=== PATIENT | female | born 1950 | race American Indian/Alaskan Native ===

== ENCOUNTER 2017-01-29 17:40 | Emergency (ER) | payer MEDICARE ==
[2017-01-29] MEDS ORDERED: PROVENTIL IH ONE ×2 (17:48→23:39)
[2017-01-29] MEDS ORDERED: DUONEB *Not for PRN Use IH ONE ×4 (17:48→23:35)
[2017-01-29 18:47] LABS: Basophils % (Auto) 0.8 % (0.0-1.8); Eosinophils % (Auto) 1.6 % (0.0-4.3); Hematocrit 46.2 % (30.3-42.9); Hemoglobin 14.9 gm/dl (10.1-14.3); Mean Corpuscular HGB Conc 32 % (30-34); Mean Corpuscular Hemoglobin 28 pg (28-32); Mean Corpuscular Volume 87 fl (79-97); Platelet Count 246 K/mm3 (140-440); Red Blood Count 5.33 M/mm3 (3.65-5.03); Red Cell Distribution Width 14.9 % (13.2-15.2); White Blood Count 10.4 K/mm3 (4.5-11.0)
[2017-01-29 19:05] LABS: Anion Gap 18 mmol/L; BUN/Creatinine Ratio 28; Blood Urea Nitrogen 17 mg/dL (7-17); Calcium 9.1 mg/dL (8.4-10.2); Carbon Dioxide 25 mmol/L (22-30); Chloride 100.6 mmol/L (98-107); Glucose 96 mg/dL (65-100); Potassium 3.8 mmol/L (3.6-5.0); Sodium 140 mmol/L (137-145)
--- NOTE | 2017-01-29 22:52 | XRay Report ---
FINAL REPORT PROCEDURE: XR CHEST ROUTINE 2V TECHNIQUE: PA and lateral chest radiographs were obtained. CPT 61514 HISTORY: Shortness of breath COMPARISON: No prior studies are available for comparison. FINDINGS: Heart: Normal. Mediastinum/Vessels: Mild pulmonary venous congestion is noted. Lungs/Pleural space: Bilateral lungs are hyperinflated. There are no confluent infiltrates. Right hilar structures are prominent. Pleural spaces are clear.. Bony thorax: No acute osseous abnormality. Other: IMPRESSION: Mild pulmonary venous congestion. Prominent right hilar structures are noted. Any underlying hilar abnormalities such as lymphadenopathy or mass lesion cannot be excluded. Comparison with any prior studies or a CT chest with contrast are recommended for further evaluation COPD. No acute pulmonary infiltrates.
[2017-01-29] MEDS ORDERED: ATROVENT IH ONE (23:39)
--- NOTE | 2017-01-29 23:47 | Emergency Department Report ---
ED Shortness of Breath HPI - General Chief Complaint: Dyspnea/Respdistress Stated Complaint: ANUJ Time Seen by Provider: 01/29/17 23:38 Source: patient Mode of arrival: Ambulatory Limitations: No Limitations - History of Present Illness Initial Comments: 66 YO FEMALE WITH H/O COPD C/O SHORTNESS OF BREATH FOR 4 DAYS. SHE HAS BEEN TAKING NEBULIZER TREATMENT IN THE EVENING FR FOUR DAYS. SHE HAS HAD NO CHEST PAIN BUT FEEL HER TREATMENTS DOES NOT WORK THUS SHE CAME IN TO THE ED TO BE TREATED. -: Gradual, days(s) (4) Severity: severe - Related Data Home Medications Medication Instructions Recorded Confirmed Last Taken ALBUTEROL Inhaler [ProAir HFA 09/18/14 09/18/14 09/17/14 Inhaler] Atorvastatin [Lipitor] 40 mg PO QHS 09/18/14 09/18/14 09/17/14 Lisinopril [Lisinopril] 09/18/14 09/18/14 09/17/14 Wellbutrin SR 150 mg PO DAILY 09/18/14 09/18/14 09/17/14 Previous Rx's Medication Instructions Recorded Last Taken Type Promethazine /Codeine 5 ml PO Q6H PRN #100 ml 01/02/14 Unknown Rx [Phenergan/Codeine 6.25-10 mg/5 ml] predniSONE [Deltasone] 50 mg PO ONCE #5 tablet 03/11/14 09/17/14 Rx Meclizine [Antivert] 25 mg PO TID PRN #10 tablet 04/23/14 Unknown Rx Ibuprofen [Motrin] 800 mg PO Q8H #20 tablet 09/18/14 Unknown Rx traMADol [Ultram 50 MG tab] 50 mg PO Q6HR PRN #20 tablet 09/18/14 Unknown Rx Ibuprofen [Motrin 600 MG tab] 600 mg PO Q8H PRN #30 tablet 03/12/16 Unknown Rx Zanamivir [Relenza] 5 mg IH BID #1 blst.w.dev 03/12/16 Unknown Rx Dexamethasone [Decadron] 20 mg PO ONCE #10 tablet 01/30/17 Unknown Rx Furosemide [Lasix] 20 mg PO QDAY #10 tablet 01/30/17 Unknown Rx Allergies Allergy/AdvReac Type Severity Reaction Status Date / Time Penicillins Allergy Swelling Verified 12/22/16 09:44 ED Review of Systems ROS: Stated complaint: ANUJ Other details as noted in HPI Constitutional: denies: chills, fever Eyes: denies: eye pain, eye discharge, vision change ENT: denies: ear pain, throat pain Respiratory: cough, shortness of breath. denies: wheezing Cardiovascular: denies: chest pain, palpitations Endocrine: no symptoms reported Gastrointestinal: denies: abdominal pain, nausea, diarrhea Genitourinary: denies: urgency, dysuria, discharge Musculoskeletal: denies: back pain, joint swelling, arthralgia Skin: denies: rash, lesions Neurological: denies: headache, weakness, paresthesias Psychiatric: denies: anxiety, depression Hematological/Lymphatic: denies: easy bleeding, easy bruising ED Past Medical Hx - Past Medical History Hx Hypertension: Yes Hx Asthma: Yes Hx COPD: Yes Additional medical history: bronchitis, diverticulitis - Surgical History Additional Surgical History: partial hysterectomy, hemorrhoid - Social History Smoking Status: Current Every Day Smoker Substance Use Type: None - Medications Home Medications: Home Medications Medication Instructions Recorded Confirmed Last Taken Type Promethazine /Codeine 5 ml PO Q6H PRN #100 ml 01/02/14 09/18/14 Unknown Rx [Phenergan/Codeine 6.25-10 mg/5 ml] predniSONE [Deltasone] 50 mg PO ONCE #5 tablet 03/11/14 09/18/14 09/17/14 Rx Meclizine [Antivert] 25 mg PO TID PRN #10 tablet 04/23/14 09/18/14 Unknown Rx ALBUTEROL Inhaler [ProAir HFA 09/18/14 09/18/14 09/17/14 History Inhaler] Atorvastatin [Lipitor] 40 mg PO QHS 09/18/14 09/18/14 09/17/14 History Ibuprofen [Motrin] 800 mg PO Q8H #20 tablet 09/18/14 Unknown Rx Lisinopril [Lisinopril] 09/18/14 09/18/14 09/17/14 History Wellbutrin SR 150 mg PO DAILY 09/18/14 09/18/14 09/17/14 History traMADol [Ultram 50 MG tab] 50 mg PO Q6HR PRN #20 tablet 09/18/14 Unknown Rx Ibuprofen [Motrin 600 MG tab] 600 mg PO Q8H PRN #30 tablet 03/12/16 Unknown Rx Zanamivir [Relenza] 5 mg IH BID #1 blst.w.dev 03/12/16 Unknown Rx Dexamethasone [Decadron] 20 mg PO ONCE #10 tablet 01/30/17 Unknown Rx Furosemide [Lasix] 20 mg PO QDAY #10 tablet 01/30/17 Unknown Rx ED Physical Exam - General Limitations: No Limitations General appearance: alert, in no apparent distress - Head Head exam: Present: atraumatic, normocephalic - Eye Eye exam: Present: normal appearance - ENT ENT exam: Present: mucous membranes moist - Neck Neck exam: Present: normal inspection - Respiratory Respiratory exam: Present: normal lung sounds bilaterally, respiratory distress , decreased breath sounds, prolonged expiratory - Cardiovascular Cardiovascular Exam: Present: regular rate, normal rhythm. Absent: systolic murmur, diastolic murmur, rubs, gallop - GI/Abdominal GI/Abdominal exam: Present: soft, normal bowel sounds - Extremities Exam Extremities exam: Present: normal inspection - Back Exam Back exam: Present: normal inspection - Neurological Exam Neurological exam: Present: alert, oriented X3 - Psychiatric Psychiatric exam: Present: normal affect, normal mood - Skin Skin exam: Present: warm, dry, intact, normal color. Absent: rash ED Course Vital Signs 01/29/17 01/29/17 01/29/17 17:42 17:52 18:02 Temperature 99.1 F Pulse Rate 91 H Pulse Rate [ 87 85 Anterior Bilateral Throughout] Respiratory 22 Rate Respiratory 30 H 22 Rate [Anterior Bilateral Throughout] Blood Pressure 156/94 O2 Sat by Pulse 97 Oximetry 01/29/17 01/29/17 01/29/17 22:46 23:00 23:15 Temperature Pulse Rate 89 82 84 Pulse Rate [ Anterior Bilateral Throughout] Respiratory 22 18 20 Rate Respiratory Rate [Anterior Bilateral Throughout] Blood Pressure 186/100 166/100 O2 Sat by Pulse 99 98 Oximetry 01/29/17 01/29/17 01/29/17 23:28 23:30 23:42 Temperature Pulse Rate 81 84 Pulse Rate [ 91 H Anterior Bilateral Throughout] Respiratory 20 24 Rate Respiratory 18 Rate [Anterior Bilateral Throughout] Blood Pressure 166/100 165/90 O2 Sat by Pulse 99 95 Oximetry 01/29/17 01/29/17 01/30/17 23:46 23:55 00:00 Temperature Pulse Rate 85 88 Pulse Rate [ 93 H Anterior Bilateral Throughout] Respiratory 13 22 Rate Respiratory 18 Rate [Anterior Bilateral Throughout] Blood Pressure 157/100 157/100 O2 Sat by Pulse 99 98 Oximetry 01/30/17 01/30/17 01/30/17 00:15 00:46 01:00 Temperature Pulse Rate 88 Pulse Rate [ Anterior Bilateral Throughout] Respiratory 27 H Rate Respiratory Rate [Anterior Bilateral Throughout] Blood Pressure 157/83 151/73 155/84 O2 Sat by Pulse 95 97 97 Oximetry 01/30/17 01/30/17 01/30/17 01:08 01:51 02:06 Temperature Pulse Rate 92 H Pulse Rate [ 88 75 Anterior Bilateral Throughout] Respiratory 18 Rate Respiratory 20 18 Rate [Anterior Bilateral Throughout] Blood Pressure 155/84 O2 Sat by Pulse 96 Oximetry 01/30/17 01/30/17 01/30/17 02:08 02:09 02:11 Temperature Pulse Rate 92 H 91 H 91 H Pulse Rate [ Anterior Bilateral Throughout] Respiratory 24 20 22 Rate Respiratory Rate [Anterior Bilateral Throughout] Blood Pressure 155/84 155/84 155/84 O2 Sat by Pulse 96 97 97 Oximetry 01/30/17 01/30/17 01/30/17 02:13 02:15 02:17 Temperature Pulse Rate 90 90 90 Pulse Rate [ Anterior Bilateral Throughout] Respiratory 21 13 22 Rate Respiratory Rate [Anterior Bilateral Throughout] Blood Pressure 155/84 155/84 155/84 O2 Sat by Pulse 98 98 97 Oximetry 01/30/17 01/30/17 01/30/17 02:19 02:20 02:21 Temperature Pulse Rate 89 90 98 H Pulse Rate [ Anterior Bilateral Throughout] Respiratory 23 25 H 24 Rate Respiratory Rate [Anterior Bilateral Throughout] Blood Pressure 155/75 130/67 130/67 O2 Sat by Pulse 97 93 97 Oximetry 01/30/17 01/30/17 01/30/17 02:23 02:25 02:27 Temperature Pulse Rate 90 90 91 H Pulse Rate [ Anterior Bilateral Throughout] Respiratory 24 21 18 Rate Respiratory Rate [Anterior Bilateral Throughout] Blood Pressure 130/67 130/67 130/67 O2 Sat by Pulse 95 97 98 Oximetry 01/30/17 01/30/17 01/30/17 02:29 02:31 02:33 Temperature Pulse Rate 91 H 93 H 93 H Pulse Rate [ Anterior Bilateral Throughout] Respiratory 19 19 24 Rate Respiratory Rate [Anterior Bilateral Throughout] Blood Pressure 130/67 130/67 130/67 O2 Sat by Pulse 96 97 97 Oximetry 01/30/17 01/30/17 01/30/17 02:35 02:37 02:39 Temperature Pulse Rate 93 H 91 H 92 H Pulse Rate [ Anterior Bilateral Throughout] Respiratory 13 22 21 Rate Respiratory Rate [Anterior Bilateral Throughout] Blood Pressure 130/67 130/67 130/67 O2 Sat by Pulse 98 96 97 Oximetry 01/30/17 01/30/17 01/30/17 02:40 02:41 02:43 Temperature Pulse Rate 93 H 93 H 92 H Pulse Rate [ Anterior Bilateral Throughout] Respiratory 23 24 16 Rate Respiratory Rate [Anterior Bilateral Throughout] Blood Pressure 139/61 139/61 139/61 O2 Sat by Pulse 95 97 96 Oximetry 01/30/17 02:44 Temperature Pulse Rate 92 H Pulse Rate [ Anterior Bilateral Throughout] Respiratory 14 Rate Respiratory Rate [Anterior Bilateral Throughout] Blood Pressure 139/61 O2 Sat by Pulse 98 Oximetry - Reevaluation(s) Reevaluation #1: 01/30/17 04:09 NO SOB, NO WHEEZING , NL ABD ,WILLD/C HOME ED Medical Decision Making - Lab Data Result diagrams: 01/29/17 18:29 01/29/17 18:29 - EKG Data EKG shows normal: sinus rhythm, axis - EKG Data Interpretation: LVH, other (Q IN V1-V3) - Radiology Data Radiology results: report reviewed (CXR: ?MASS IN CHEST, RECOMMENT CT OF CHEST CT SHEST: COPD,EMPHYSEMA) Critical care attestation.: If time is entered above; I have spent that time in minutes in the direct care of this critically ill patient, excluding procedure time. ED Disposition Clinical Impression: COPD exacerbation CHF (congestive heart failure) Qualifiers: Congestive heart failure type: unspecified congestive heart failure type Congestive heart failure chronicity: acute Qualified Code(s): I50.9 - Heart failure, unspecified Disposition: DC-01 TO HOME OR SELFCARE Is pt being admited?: No Does the pt Need Aspirin: No Condition: Stable Instructions: Heart Failure (ED), Chronic Obstructive Pulmonary Disease (ED) Additional Instructions: RETURN TO THE ED FOR ANY REASON,ESPECIALLY SHORTNESS OF BREATH Prescriptions: Dexamethasone [Decadron] 20 mg PO ONCE #10 tablet Furosemide [Lasix] 20 mg PO QDAY #10 tablet Referrals: PRIMARY CARE, [Primary Care Provider] - 3-5 Days
[2017-01-30 00:55] LABS: ISTAT Base Excess 1; ISTAT DEVICE 0; ISTAT HCO3 24.7; ISTAT PCO2 35.9 (35-45); ISTAT PH 7.445 (7.35-7.45); ISTAT PO2 89 (80-105); ISTAT SO2 97; ISTAT TCO2 26
[2017-01-30] MEDS ORDERED: XOPENEX IH ONE ×2 (01:03→01:05)
[2017-01-30] MEDS ORDERED: ATROVENT IH ONE (01:05)
--- NOTE | 2017-01-30 01:36 | Cat Scan Report ---
FINAL REPORT EXAM: CT CHEST W CON HISTORY: MASS IN CHEST TECHNIQUE: Routine axial images were obtained of the thorax following the intravenous injection of iodinated contrast. Sagittal and coronal reconstructions were reviewed. The chest radiograph of 01/29/2017 was reviewed for correlation. FINDINGS: The lungs reveal emphysematous changes, particularly in the lingula. There scarring in the right lung base. There is no evidence of hilar mass or adenopathy bilaterally. The heart size is normal. The vascular structures enhance normally. There is no evidence of pericardial or pleural effusion. There is no evidence of pulmonary embolus. At the thoracic inlet the thyroid gland appears normal. In the upper abdomen the adrenal glands appear normal. The skeletal structures reveal disc degeneration in the thoracic spine. IMPRESSION: Emphysematous changes. No evidence of right hilar mass or adenopathy. Mild scarring in the right lung base. No acute process in the chest.
[2017-01-30] MEDS ORDERED: DECADRON PO ONE (04:06)
[2017-01-30] MEDS ORDERED: DECADRON ONE (04:10)
[2017-01-30] MEDS ORDERED: LASIX PO ONE (04:11)
[2017-01-30 04:23] VITALS: BP 135/79
== END 2017-01-30 04:23 | disposition home or self-care (01) ==
LOC: ED 17:40
DX: I50.9 Heart failure, unspecified (principal); J44.1 Chronic obstructive pulmonary disease with (acute) exacerbation; I10 Essential (primary) hypertension; F17.200 Nicotine dependence, unspecified, uncomplicated; Z90.711 Acquired absence of uterus with remaining cervical stump; Z88.0 Allergy status to penicillin
CPT/HCPCS: 36415; 71020; 71260; 80048; 82803; 83880; 84484; 85025; 93005; 93010; 94640; 94644; 99284; J1100; Q9967

== ENCOUNTER 2017-02-11 05:46 | Emergency (ER) | payer MEDICARE ==
[2017-02-11 07:16] LABS: Basophils % (Auto) 0.6 % (0.0-1.8); Eosinophils % (Auto) 1.1 % (0.0-4.3); Hematocrit 45.2 % (30.3-42.9); Hemoglobin 14.4 gm/dl (10.1-14.3); Mean Corpuscular HGB Conc 32 % (30-34); Mean Corpuscular Hemoglobin 28 pg (28-32); Mean Corpuscular Volume 88 fl (79-97); Platelet Count 199 K/mm3 (140-440); Red Blood Count 5.16 M/mm3 (3.65-5.03); Red Cell Distribution Width 15.1 % (13.2-15.2); White Blood Count 12.7 K/mm3 (4.5-11.0)
[2017-02-11 07:32] LABS: Anion Gap 18 mmol/L; BUN/Creatinine Ratio 28; Blood Urea Nitrogen 14 mg/dL (7-17); Calcium 8.9 mg/dL (8.4-10.2); Carbon Dioxide 25 mmol/L (22-30); Chloride 102.4 mmol/L (98-107); Glucose 168 mg/dL (65-100); Potassium 3.5 mmol/L (3.6-5.0); Sodium 142 mmol/L (137-145)
--- NOTE | 2017-02-11 08:14 | XRay Report ---
CHEST TWO VIEWS: 02/11/17 05:46:00 CLINICAL: Shortness of breath. COMPARISON: 01/29/17 FINDINGS: Normal heart and pulmonary vasculature. The lungs are normally expanded and clear except for a band of subsegmental atelectasis or scar in the left lower lobe. No airspace disease or pleural effusion. The bones and soft tissues are normal. IMPRESSION: Left lower lobe subsegmental atelectasis versus scar. No change.
[2017-02-11] MEDS ORDERED: SUBLIMAZE IV ONE (08:50)
[2017-02-11] MEDS ORDERED: TORADOL IV ONE (08:50)
--- NOTE | 2017-02-11 08:50 | Emergency Department Report ---
ED General Adult HPI - General Chief complaint: Dyspnea/Respdistress Stated complaint: COUGH/ANUJ Time Seen by Provider: 02/11/17 08:38 Source: patient, EMS, RN notes reviewed, old records reviewed Mode of arrival: Ambulatory Limitations: No Limitations - History of Present Illness Initial comments: This is a 66-year-old female. The patient is previously known to this provider. Patient reports a history of possible COPD, congestive heart failure, hypertension. Patient presents to the ER with cough, he gets production, chest wall spasms. The spasms have been present for 2 weeks. She does not have chest pain. Patient also complains of cough and mucus production. She is coughing more than she typically coughs. She is bringing up more mucus than she typically brings up. Patient reports that she recently quit smoking. There are no pulmonary edema most or DVT risk factors. She reports numerous sick contacts at home and her grandchildren, all of whom have similar symptoms, and who she thinks got her "sick." She reports having a positive pressure machine at home to help with sleep, but reports poor compliance of this. She reports chronic multiple pillow orthopnea for months and years. Her symptoms have been going on for the past 2 or 3 days. They worse with physical exertion. They decreased with rest. They do not radiate anywhere. -: Gradual, days(s), week(s) Location: chest (b/l ribs) Radiation: non-radiation Severity scale (0 -10): 4 Quality: other (spasms) Improves with: rest Worsens with: movement Associated Symptoms: cough, shortness of breath (chronic) - Related Data Home Medications Medication Instructions Recorded Confirmed Last Taken ALBUTEROL Inhaler [ProAir HFA 09/18/14 09/18/14 09/17/14 Inhaler] Atorvastatin [Lipitor] 40 mg PO QHS 09/18/14 09/18/14 09/17/14 Lisinopril [Lisinopril] 09/18/14 09/18/14 09/17/14 Wellbutrin SR 150 mg PO DAILY 09/18/14 09/18/14 09/17/14 Previous Rx's Medication Instructions Recorded Last Taken Type Promethazine /Codeine 5 ml PO Q6H PRN #100 ml 01/02/14 Unknown Rx [Phenergan/Codeine 6.25-10 mg/5 ml] predniSONE [Deltasone] 50 mg PO ONCE #5 tablet 03/11/14 09/17/14 Rx Meclizine [Antivert] 25 mg PO TID PRN #10 tablet 04/23/14 Unknown Rx Ibuprofen [Motrin] 800 mg PO Q8H #20 tablet 09/18/14 Unknown Rx traMADol [Ultram 50 MG tab] 50 mg PO Q6HR PRN #20 tablet 09/18/14 Unknown Rx Ibuprofen [Motrin 600 MG tab] 600 mg PO Q8H PRN #30 tablet 03/12/16 Unknown Rx Zanamivir [Relenza] 5 mg IH BID #1 blst.w.dev 03/12/16 Unknown Rx Dexamethasone [Decadron] 20 mg PO ONCE #10 tablet 01/30/17 Unknown Rx Furosemide [Lasix] 20 mg PO QDAY #10 tablet 01/30/17 Unknown Rx Acetaminophen [Tylenol Arthritis] 650 mg PO Q6HR PRN #30 tablet.er 02/11/17 Unknown Rx Albuterol Sulfate [Proair 90 mcg IH Q4HR PRN #2 aer.pow.ba 02/11/17 Unknown Rx Respiclick] Benzonatate [Tessalon Perles] 100 mg PO Q8HR PRN #30 capsule 02/11/17 Unknown Rx Fluticasone [Flonase] 1 spray NS QDAY #1 bottle 02/11/17 Unknown Rx Ipratropium [place] [Atrovent Hfa] 12.9 gm IH Q4HR #2 hfa.aer.ad 02/11/17 Unknown Rx Allergies Allergy/AdvReac Type Severity Reaction Status Date / Time Penicillins Allergy Swelling Verified 03/12/16 09:44 ED Review of Systems ROS: Stated complaint: COUGH/ANUJ Other details as noted in HPI Constitutional: denies: fever Eyes: denies: eye discharge ENT: throat pain, congestion Respiratory: cough Cardiovascular: denies: chest pain Gastrointestinal: denies: abdominal pain, vomiting Musculoskeletal: arthralgia Skin: denies: lesions Neurological: weakness Psychiatric: anxiety ED Past Medical Hx - Past Medical History Previous Medical History?: Yes Hx Hypertension: Yes Hx Asthma: Yes Hx COPD: Yes Additional medical history: bronchitis, diverticulitis - Surgical History Past Surgical History?: Yes Additional Surgical History: partial hysterectomy, hemorrhoid - Social History Smoking Status: Former Smoker Substance Use Type: None - Medications Home Medications: Home Medications Medication Instructions Recorded Confirmed Last Taken Type Promethazine /Codeine 5 ml PO Q6H PRN #100 ml 01/02/14 09/18/14 Unknown Rx [Phenergan/Codeine 6.25-10 mg/5 ml] predniSONE [Deltasone] 50 mg PO ONCE #5 tablet 03/11/14 09/18/14 09/17/14 Rx Meclizine [Antivert] 25 mg PO TID PRN #10 tablet 04/23/14 09/18/14 Unknown Rx ALBUTEROL Inhaler [ProAir HFA 09/18/14 09/18/14 09/17/14 History Inhaler] Atorvastatin [Lipitor] 40 mg PO QHS 09/18/14 09/18/14 09/17/14 History Ibuprofen [Motrin] 800 mg PO Q8H #20 tablet 09/18/14 Unknown Rx Lisinopril [Lisinopril] 09/18/14 09/18/14 09/17/14 History Wellbutrin SR 150 mg PO DAILY 09/18/14 09/18/14 09/17/14 History traMADol [Ultram 50 MG tab] 50 mg PO Q6HR PRN #20 tablet 09/18/14 Unknown Rx Ibuprofen [Motrin 600 MG tab] 600 mg PO Q8H PRN #30 tablet 03/12/16 Unknown Rx Zanamivir [Relenza] 5 mg IH BID #1 blst.w.dev 03/12/16 Unknown Rx Dexamethasone [Decadron] 20 mg PO ONCE #10 tablet 01/30/17 Unknown Rx Furosemide [Lasix] 20 mg PO QDAY #10 tablet 01/30/17 Unknown Rx Acetaminophen [Tylenol Arthritis] 650 mg PO Q6HR PRN #30 tablet.er 02/11/17 Unknown Rx Albuterol Sulfate [Proair 90 mcg IH Q4HR PRN #2 aer.pow.ba 02/11/17 Unknown Rx Respiclick] Benzonatate [Tessalon Perles] 100 mg PO Q8HR PRN #30 capsule 02/11/17 Unknown Rx Fluticasone [Flonase] 1 spray NS QDAY #1 bottle 02/11/17 Unknown Rx Ipratropium [place] [Atrovent Hfa] 12.9 gm IH Q4HR #2 hfa.aer.ad 02/11/17 Unknown Rx ED Physical Exam - General Limitations: No Limitations General appearance: alert, in distress, obese - Head Head exam: Present: atraumatic, normocephalic - Eye Eye exam: Present: normal appearance, EOMI. Absent: nystagmus - ENT ENT exam: Present: normal exam, normal orophraynx, mucous membranes moist, normal external ear exam - Neck Neck exam: Present: normal inspection, full ROM - Respiratory Respiratory exam: Present: normal lung sounds bilaterally, chest wall tenderness. Absent: respiratory distress, wheezes, rales, rhonchi, stridor - Cardiovascular Cardiovascular Exam: Present: regular rate, normal rhythm, normal heart sounds. Absent: systolic murmur, diastolic murmur, rubs, gallop - GI/Abdominal GI/Abdominal exam: Present: soft, normal bowel sounds. Absent: distended, tenderness, guarding, rebound, rigid, pulsatile mass - Extremities Exam Extremities exam: Present: normal inspection, full ROM, normal capillary refill. Absent: pedal edema, joint swelling, calf tenderness - Back Exam Back exam: Present: normal inspection, full ROM. Absent: tenderness, CVA tenderness (R), paraspinal tenderness, vertebral tenderness - Neurological Exam Neurological exam: Present: alert, oriented X3, normal gait, other (Extraocular movements intact. Tongue midline. No facial droop. Facial sensation intact to light touch in the V1, V2, V3 distribution bilaterally. 5 and 5 strength in 4 extremities.. Sensation is intact to light touch in 4 extremities.). Absent : motor sensory deficit - Psychiatric Psychiatric exam: Present: normal affect, normal mood - Skin Skin exam: Present: warm, dry, intact, normal color. Absent: rash ED Course Vital Signs 02/11/17 02/11/17 02/11/17 06:00 09:20 09:35 Temperature 98.6 F 98.3 F Pulse Rate 84 75 Respiratory 20 20 20 Rate Blood Pressure 127/80 136/78 [Right] O2 Sat by Pulse 96 98 Oximetry 02/11/17 02/11/17 10:17 10:54 Temperature 98.3 F Pulse Rate 90 68 Respiratory 22 20 Rate Blood Pressure 132/71 [Right] O2 Sat by Pulse 100 Oximetry - Reevaluation(s) Reevaluation #1: 02/11/17 10:41 Troponin is sent prior to my evaluation. Based on the history and physical, I think acute coronary syndrome is very unlikely. Patient by history low risk by JAMEEL score, and low risk by heart score. Symptoms have been present for 2-3 days. As per the [employer] clinical policy, myocardial infarction may be excluded with 1 set of cardiac enzymes if symptoms have been present for greater than 8 hours. ED Medical Decision Making - Lab Data Result diagrams: 02/11/17 06:56 02/11/17 06:56 Vital Signs 02/11/17 02/11/17 02/11/17 06:00 09:35 10:17 Temperature 98.6 F Pulse Rate 84 90 Respiratory 20 20 22 Rate Blood Pressure 127/80 [Right] O2 Sat by Pulse 96 Oximetry Lab Results 02/11/17 02/11/17 02/11/17 Range/Units 06:56 06:56 06:56 WBC (4.5-11.0) K/mm3 RBC (3.65-5.03) M/mm3 Hgb (10.1-14.3) gm/dl Hct (30.3-42.9) % MCV (79-97) fl MCH (28-32) pg MCHC (30-34) % RDW (13.2-15.2) % Plt Count (140-440) K/mm3 Lymph % (Auto) (13.4-35.0) % [place]ayson % (Auto) (0.0-7.3) % Eos % (Auto) (0.0-4.3) % Baso % (Auto) (0.0-1.8) % Lymph # (1.2-5.4) K/mm3 [place]ayson # (0.0-0.8) K/mm3 Eos # (0.0-0.4) K/mm3 Baso # (0.0-0.1) K/mm3 Seg Neutrophils % (40.0-70.0) % Seg Neutrophils # (1.8-7.7) K/mm3 POC ABG pH (7.35-7.45) POC ABG pCO2 (35-45) POC ABG pO2 (80-105) POC ABG HCO3 POC ABG Total CO2 POC ABG O2 Sat POC ABG Base Excess VBG pH 7.383 (7.320-7.420) FiO2 % Sodium 142 (137-145) mmol/L Potassium 3.5 L (3.6-5.0) mmol/L Chloride 102.4 (98-107) mmol/L Carbon Dioxide 25 (22-30) mmol/L Anion Gap 18 mmol/L BUN 14 (7-17) mg/dL Creatinine 0.5 L (0.7-1.2) mg/dL Estimated GFR > 60 ml/min BUN/Creatinine Ratio 28 % Glucose 168 H (65-100) mg/dL Lactic Acid 1.50 (0.7-2.0) mmol/L Calcium 8.9 (8.4-10.2) mg/dL Troponin T < 0.010 (0.00-0.029) ng/mL 02/11/17 02/11/17 Range/Units 06:56 10:02 WBC 12.7 H (4.5-11.0) K/mm3 RBC 5.16 H (3.65-5.03) M/mm3 Hgb 14.4 H (10.1-14.3) gm/dl Hct 45.2 H (30.3-42.9) % MCV 88 (79-97) fl MCH 28 (28-32) pg MCHC 32 (30-34) % RDW 15.1 (13.2-15.2) % Plt Count 199 (140-440) K/mm3 Lymph % (Auto) 19.0 (13.4-35.0) % [place] % (Auto) 6.5 (0.0-7.3) % Eos % (Auto) 1.1 (0.0-4.3) % Baso % (Auto) 0.6 (0.0-1.8) % Lymph # 2.4 (1.2-5.4) K/mm3 Grayson # 0.8 (0.0-0.8) K/mm3 Eos # 0.1 (0.0-0.4) K/mm3 Baso # 0.1 (0.0-0.1) K/mm3 Seg Neutrophils % 72.8 H (40.0-70.0) % Seg Neutrophils # 9.3 H (1.8-7.7) K/mm3 POC ABG pH 7.412 (7.35-7.45) POC ABG pCO2 44.2 (35-45) POC ABG pO2 70 L (80-105) POC ABG HCO3 28.1 POC ABG Total CO2 29 POC ABG O2 Sat 94 POC ABG Base Excess 4 VBG pH (7.320-7.420) FiO2 21 % Sodium (137-145) mmol/L Potassium (3.6-5.0) mmol/L Chloride (98-107) mmol/L Carbon Dioxide (22-30) mmol/L Anion Gap mmol/L BUN (7-17) mg/dL Creatinine (0.7-1.2) mg/dL Estimated GFR ml/min BUN/Creatinine Ratio % Glucose (65-100) mg/dL Lactic Acid (0.7-2.0) mmol/L Calcium (8.4-10.2) mg/dL Troponin T (0.00-0.029) ng/mL - EKG Data -: EKG Interpreted by Pa - EKG Data 02/11/17 10:37 Normal sinus, 85 bpm, left axis deviation, left anterior fascicular block, left ventricular hypertrophy, poor R-wave progression, abnormal EKG, not morphologically consistent with ST elevation myocardial infarction, appears unchanged compared to prior. - Radiology Data Radiology results: report reviewed, image reviewed X-ray of the chest demonstrates chronic findings. No new findings are noted. Of note, patient had CT scan of the chest on January 29, demonstrated chronic emphysematous changes and mild scarring in the right lung base. - Medical Decision Making Differential diagnosis, including but not limited to: Costochondritis, anxiety, bronchitis, pneumonia, congestive heart failure Assessment and plan 66-year-old female who reports bilateral chest wall spasms for 2 weeks, of note , this was not noted on her prior visit, cough, mucus production and chronic shortness of breath. Objectively speaking, the patient does not have crackles, rales or rhonchi. She is saturating at 97% on room air. Her arterial blood gas demonstrates mild hypoxemia with a PaO2 of 70. However, the patient is able to ambulate without desaturation. She does have some shortness of breath with ambulation. There are no pulmonary blister DVT risk factors and she is low risk by well's criteria. A CT scan of the chest performed at this hospital a week and a half ago demonstrated chronic emphysematous changes and the patient was presumptively diagnosed with congestive heart failure. The patient has no crackles or rales, she is not hypoxic, therefore think congestive heart failure is unlikely. She does not have any wheezes, therefore I think COPD exacerbation and/or asthma exacerbation also unlikely. She endorses multiple child sick contacts at home with similar symptoms, most likely the patient has bronchitis which is exacerbating her underlying poorly managed COPD. The patient's history, physical, laboratory studies were discussed with the presser and blocker knitted goods on-call, Dr. Olmstead, and we both agree that based on the patient's current clinical presentation, she does not objectively require hospitalization. The patient was medicated with fentanyl and Toradol, and felt much improved, and reported her spasms improved. Dr. Olmstead indicates the patient should follow-up with him within a week. The patient will be therefore discharged with as needed pain medication, cough medication, she was instructed to discontinue tobacco consumption, and she is counseled to follow up as an outpatient. Critical care attestation.: If time is entered above; I have spent that time in minutes in the direct care of this critically ill patient, excluding procedure time. ED Disposition Clinical Impression: Bronchitis Disposition: [id number] TO HOME OR SELFCARE Is pt being admited?: No Does the pt Need Aspirin: No Condition: Good Instructions: Chronic Bronchitis (ED) Additional Instructions: Symptoms most likely coming from bronchitis. Bronchitis symptoms typically take 4-6 weeks to resolve. Discontinued tobacco consumption. Tobacco is bad for the patient's health, and will likely continue to exacerbate and worsen patient's symptoms. Follow up with the primary care doctor or a lung doctor within the next [address] Olmstead is a local lung doctor. Take the cough medication, and pain medication as directed. Return to the ER right away with new pain, worsening pain, migration of pain, fevers, chills, lethargy, irritability, projectile vomiting, change in mental status, confusion, inability to tolerate liquid feeds. Prescriptions: Acetaminophen [Tylenol Arthritis] 650 mg PO Q6HR PRN #30 tablet.er PRN Reason: Pain Albuterol Sulfate [Proair Respiclick] 90 mcg IH Q4HR PRN #2 aer.pow.ba PRN Reason: Wheezing Benzonatate [Tessalon Perles] 100 mg PO Q8HR PRN #30 capsule PRN Reason: Cough Fluticasone [Flonase] 1 spray NS QDAY #1 bottle Ipratropium [place] [Atrovent Hfa] 12.9 gm IH Q4HR #2 hfa.aer.ad Referrals: DONTA ALFARO,DERIC TALAVERA MD [Primary Care Provider] - 3-5 Days JAMES OLMSTEAD MD [Staff Physician] - 3-5 Days
[2017-02-11 10:09] LABS: ISTAT Base Excess 4; ISTAT DEVICE 0; ISTAT HCO3 28.1; ISTAT PCO2 44.2 (35-45); ISTAT PH 7.412 (7.35-7.45); ISTAT PO2 70 (80-105); ISTAT SO2 94; ISTAT TCO2 29
[2017-02-11 10:55] VITALS: BP 132/71
== END 2017-02-11 11:10 | disposition home or self-care (01) ==
LOC: ED 05:46
DX: J40 Bronchitis, not specified as acute or chronic (principal); I10 Essential (primary) hypertension; J44.9 Chronic obstructive pulmonary disease, unspecified
CPT/HCPCS: 36415; 71020; 80048; 82140; 82803; 82805; 84484; 85025; 93005; 93010; 96374; 96375; 99284; J1885; J3010

== ENCOUNTER 2017-09-18 12:04 | Emergency (ER) | payer MEDICARE ==
[2017-09-18] MEDS ORDERED: ASPIRIN PO ONE (12:18)
[2017-09-18 13:22] LABS: Basophils # (Auto) 0.1 K/mm3 (0.0-0.1); Basophils % (Auto) 0.8 % (0.0-1.8); Eosinophils # (Auto) 0.1 K/mm3 (0.0-0.4); Eosinophils % (Auto) 1.2 % (0.0-4.3); Hematocrit 42.6 % (30.3-42.9); Hemoglobin 13.6 gm/dl (10.1-14.3); Lymphocytes # (Auto) 2.9 K/mm3 (1.2-5.4); Lymphocytes % (Auto) 27.8 % (13.4-35.0); Mean Corpuscular HGB Conc 32 % (30-34); Mean Corpuscular Hemoglobin 28 pg (28-32); Mean Corpuscular Volume 88 fl (79-97); Monocytes # (Auto) 0.7 K/mm3 (0.0-0.8); Monocytes % (Auto) 6.3 % (0.0-7.3); Red Blood Count 4.84 M/mm3 (3.65-5.03)
[2017-09-18 13:26] LABS: Platelet Count 185 K/mm3 (140-440)
[2017-09-18 13:43] LABS: BUN/Creatinine Ratio 19; Blood Urea Nitrogen 13 mg/dL (7-17); Calcium 9.4 mg/dL (8.4-10.2); Hemolysis Index 52
--- NOTE | 2017-09-18 18:05 | Emergency Department Report ---
ED Shortness of Breath HPI - General Chief Complaint: Dyspnea/Respdistress Stated Complaint: SOB HX COPD Time Seen by Provider: 09/18/17 17:58 Source: patient Mode of arrival: Ambulatory Limitations: No Limitations - History of Present Illness Initial Comments: 67-year-old woman with past history of COPD and tobacco abuse, presents with 2 week history of shortness of breath. Symptoms have been intermittent, but fairly persistent, not associated with exertion, but present at rest most of the time, with some report of slight increase in sputum production with cough. She has been using her pump inhalers, has been reluctant to use nebulizer, primarily because she says it makes her feel too jittery, and at best has only been using it once per day. She does not take any steroids on a regular basis. She is a previous smoker, but quit a year ago, has not started back recently. On question by nurse at intake, patient also reports that she has been having chest pain, central, sharp, increased with deep inspiration, lasting only seconds, and return in when she has deep inspiration or movement. She had no pressure-like sensation, no diaphoresis, no fever or chills, no abdominal pain and no nausea or vomiting. Onset/Timin -: Gradual, week(s) Consistency: constant Improves With: medication (pump inhaler) - Related Data Home Medications Medication Instructions Recorded Confirmed Last Taken ALBUTEROL Inhaler [ProAir HFA 09/18/14 09/18/14 09/17/14 Inhaler] Atorvastatin [Lipitor] 40 mg PO QHS 09/18/14 09/18/14 09/17/14 Lisinopril 09/18/14 09/18/14 09/17/14 Wellbutrin SR 150 mg PO DAILY 09/18/14 09/18/14 09/17/14 Previous Rx's Medication Instructions Recorded Last Taken Type Promethazine /Codeine 5 ml PO Q6H PRN #100 ml 01/02/14 Unknown Rx [Phenergan/Codeine 6.25-10 mg/5 ml] predniSONE [Deltasone] 50 mg PO ONCE #5 tablet 03/11/14 09/17/14 Rx Meclizine [Antivert] 25 mg PO TID PRN #10 tablet 04/23/14 Unknown Rx Ibuprofen [Motrin] 800 mg PO Q8H #20 tablet 09/18/14 Unknown Rx traMADol [Ultram 50 MG tab] 50 mg PO Q6HR PRN #20 tablet 09/18/14 Unknown Rx Ibuprofen [Motrin 600 MG tab] 600 mg PO Q8H PRN #30 tablet 03/12/16 Unknown Rx Zanamivir [Relenza] 5 mg IH BID #1 blst.w.dev 03/12/16 Unknown Rx Dexamethasone [Decadron] 20 mg PO ONCE #10 tablet 01/30/17 Unknown Rx Furosemide [Lasix] 20 mg PO QDAY #10 tablet 01/30/17 Unknown Rx Acetaminophen [Tylenol Arthritis] 650 mg PO Q6HR PRN #30 tablet.er 02/11/17 Unknown Rx Albuterol Sulfate [Proair 90 mcg IH Q4HR PRN #2 aer.pow.ba 02/11/17 Unknown Rx Respiclick] Benzonatate [Tessalon Perles] 100 mg PO Q8HR PRN #30 capsule 02/11/17 Unknown Rx Fluticasone [Flonase] 1 spray NS QDAY #1 bottle 02/11/17 Unknown Rx Ipratropium Atkinson [Atrovent Hfa] 12.9 gm IH Q4HR #2 hfa.aer.ad 02/11/17 Unknown Rx Acetaminophen/Codeine [Tylenol 1 - 2 tab PO Q6H PRN #30 tab 09/18/17 Unknown Rx /Codeine # 3 tab] Azithromycin 250 mg PO DAILY #6 tablet 09/18/17 Unknown Rx Furosemide [Lasix TAB] 20 mg PO QDAY #30 tablet 09/18/17 Unknown Rx Allergies Allergy/AdvReac Type Severity Reaction Status Date / Time Penicillins Allergy Swelling Verified 03/12/16 09:44 ED Review of Systems ROS: Stated complaint: SOB HX COPD Other details as noted in HPI Constitutional: weakness. denies: chills, diaphoresis, fever, malaise ENT: denies: throat pain Respiratory: cough, shortness of breath, SOB at rest, wheezing Cardiovascular: chest pain (sharp, intermittent, lasting seconds) Endocrine: no symptoms reported Gastrointestinal: denies: abdominal pain, nausea, vomiting Genitourinary: denies: urgency, dysuria Musculoskeletal: denies: back pain Skin: denies: rash Neurological: denies: headache, weakness, paresthesias Psychiatric: anxiety ED Past Medical Hx - Past Medical History Hx Hypertension: Yes Hx Asthma: Yes Hx COPD: Yes (cared for by Dr. Wolfe, [facility], no geriatric psychiatrist) Additional medical history: bronchitis, diverticulitis - Surgical History Additional Surgical History: partial hysterectomy, hemorrhoid - Social History Smoking Status: Never Smoker - Medications Home Medications: Home Medications Medication Instructions Recorded Confirmed Last Taken Type Promethazine /Codeine 5 ml PO Q6H PRN #100 ml 01/02/14 09/18/14 Unknown Rx [Phenergan/Codeine 6.25-10 mg/5 ml] predniSONE [Deltasone] 50 mg PO ONCE #5 tablet 03/11/14 09/18/14 09/17/14 Rx Meclizine [Antivert] 25 mg PO TID PRN #10 tablet 04/23/14 09/18/14 Unknown Rx ALBUTEROL Inhaler [ProAir HFA 09/18/14 09/18/14 09/17/14 History Inhaler] Atorvastatin [Lipitor] 40 mg PO QHS 09/18/14 09/18/14 09/17/14 History Ibuprofen [Motrin] 800 mg PO Q8H #20 tablet 09/18/14 Unknown Rx Lisinopril 09/18/14 09/18/14 09/17/14 History Wellbutrin SR 150 mg PO DAILY 09/18/14 09/18/14 09/17/14 History traMADol [Ultram 50 MG tab] 50 mg PO Q6HR PRN #20 tablet 09/18/14 Unknown Rx Ibuprofen [Motrin 600 MG tab] 600 mg PO Q8H PRN #30 tablet 03/12/16 Unknown Rx Zanamivir [Relenza] 5 mg IH BID #1 blst.w.dev 03/12/16 Unknown Rx Dexamethasone [Decadron] 20 mg PO ONCE #10 tablet 01/30/17 Unknown Rx Furosemide [Lasix] 20 mg PO QDAY #10 tablet 01/30/17 Unknown Rx Acetaminophen [Tylenol Arthritis] 650 mg PO Q6HR PRN #30 tablet.er 02/11/17 Unknown Rx Albuterol Sulfate [Proair 90 mcg IH Q4HR PRN #2 aer.pow.ba 02/11/17 Unknown Rx Respiclick] Benzonatate [Tessalon Perles] 100 mg PO Q8HR PRN #30 capsule 02/11/17 Unknown Rx Fluticasone [Flonase] 1 spray NS QDAY #1 bottle 02/11/17 Unknown Rx Ipratropium Atkinson [Atrovent Hfa] 12.9 gm IH Q4HR #2 hfa.aer.ad 02/11/17 Unknown Rx Acetaminophen/Codeine [Tylenol 1 - 2 tab PO Q6H PRN #30 tab 09/18/17 Unknown Rx /Codeine # 3 tab] Azithromycin 250 mg PO DAILY #6 tablet 09/18/17 Unknown Rx Furosemide [Lasix TAB] 20 mg PO QDAY #30 tablet 09/18/17 Unknown Rx ED Physical Exam - General Limitations: No Limitations General appearance: alert (resting comfortably, 99% oxygen saturation on 2 L by nasal cannula), anxious (chronic, worsened during course of history) - Head Head exam: Present: atraumatic, normocephalic - Eye Eye exam: Present: PERRL, EOMI - ENT ENT exam: Present: mucous membranes moist - Neck Neck exam: Present: normal inspection, full ROM, other (no JVD). Absent: tenderness, meningismus - Respiratory Respiratory exam: Present: wheezes, other (obese, poor inspiratory effort). Absent: respiratory distress, rales, rhonchi, accessory muscle use - Cardiovascular Cardiovascular Exam: Present: regular rate, normal heart sounds. Absent: systolic murmur, diastolic murmur - GI/Abdominal GI/Abdominal exam: Present: soft, normal bowel sounds, other (obese). Absent: tenderness - Rectal Rectal exam: Present: deferred - Extremities Exam Extremities exam: Present: full ROM. Absent: tenderness, pedal edema - Neurological Exam Neurological exam: Present: alert, oriented X3 - Psychiatric Psychiatric exam: Present: anxious. Absent: agitated - Skin Skin exam: Present: warm, dry ED Course Vital Signs 09/18/17 09/18/17 09/18/17 12:13 17:16 17:30 Temperature 37.1 C Pulse Rate 93 H 83 Pulse Rate [ Bilateral Throughout] Respiratory 20 20 Rate Respiratory Rate [Bilateral Throughout] Blood Pressure 132/83 126/89 Blood Pressure [Left] O2 Sat by Pulse 97 100 100 Oximetry 09/18/17 09/18/17 09/18/17 17:53 18:41 18:50 Temperature Pulse Rate Pulse Rate [ 81 82 Bilateral Throughout] Respiratory 22 Rate Respiratory 19 21 Rate [Bilateral Throughout] Blood Pressure Blood Pressure [Left] O2 Sat by Pulse 97 Oximetry 09/18/17 19:33 Temperature 36.8 C Pulse Rate 84 Pulse Rate [ Bilateral Throughout] Respiratory 22 Rate Respiratory Rate [Bilateral Throughout] Blood Pressure Blood Pressure 159/96 [Left] O2 Sat by Pulse 100 Oximetry ED Medical Decision Making - Lab Data Result diagrams: 09/18/17 12:44 09/18/17 12:44 - EKG Data -: EKG Interpreted by Me EKG shows normal: sinus rhythm, axis (prolonged QT interval at 550 ms corrected ; chronic minor ST elevations anterior precordial leads, unchanged from prior tracing, January 2017), intervals (prolonged QT interval, 550 ms corrected), QRS complexes (LVH) Rate: normal - EKG Data When compared to previous EKG there are: no significant change (prior tracing 2016) - Radiology Data Radiology results: report reviewed (chest x-ray unremarkable, no acute evidence of heart failure or lobar consolidation) - Medical Decision Making Patient has probably multifactorial cause for her shortness of breath, as she is currently out of furosemide, which she has been taking, his doctor told her to decrease water accumulation, and she is under the impression she has heart failure. Additionally, she has mild wheezing, with COPD, secondary to tobacco abuse, but has not smoked, and evaluation is negative for signs of acute infection. Nonetheless patient will be advised to continue albuterol inhalations, given short course of antibiotics, azithromycin, and will have her furosemide refilled. Given patient has few findings of significant COPD exacerbation, I believe she can do well with acceleration of her nebulized treatments, which she has been reluctant to use, but will withhold steroids due to the fluid retention effects, and believed that she also has some heart failure component, and will do better with simple diuresis from the furosemide, and this would be complicated by giving her steroids at this time. She also complains of significant pain, and we will give her a short course of codeine until she can follow-up with her doctor next week. - Differential Diagnosis bronchitis, exacerbation of COPD, heart failure Critical Care Time: No Critical care attestation.: If time is entered above; I have spent that time in minutes in the direct care of this critically ill patient, excluding procedure time. ED Disposition Clinical Impression: COPD exacerbation, Fluid retention Disposition: [id number] TO HOME OR SELFCARE Is pt being admited?: No Does the pt Need Aspirin: No Condition: Stable Instructions: Chronic Obstructive Pulmonary Disease (ED) Additional Instructions: Use your breathing treatment nebulizer at home, every 4 hours to improve the opening of the air passages. We are also refilling furosemide, because there is signs of stress on the heart , with fluid retention, because you have run out of your furosemide. We're also place him on antibiotic, azithromycin, to take daily as directed. Have recheck by doctor later this week, 3-4 days. Prescriptions: Acetaminophen/Codeine [Tylenol /Codeine # 3 tab] 1 - 2 tab PO Q6H PRN #30 tab PRN Reason: Pain, Moderate (4-6) Azithromycin 250 mg PO DAILY #6 tablet Furosemide [Lasix TAB] 20 mg PO QDAY #30 tablet Referrals: PRIMARY CARE, [Primary Care Provider] - 3-5 Days Time of Disposition: 20:23
[2017-09-18] MEDS ORDERED: DUONEB *Not for PRN Use IH ONE (18:26)
[2017-09-18] MEDS ORDERED: ATIVAN PO ONE (18:26)
--- NOTE | 2017-09-18 19:30 | XRay Report ---
FINAL REPORT EXAM: XR CHEST 1V AP HISTORY: ANUJ, 2 wks, hx COPD TECHNIQUE: upright single view chest PRIORS: Comparison is January 29, 2017 FINDINGS: Cardiac and mediastinal contours are unremarkable. No focal pulmonary infiltrate is identified. No pleural fluid collection seen. Pulmonary vasculature is unremarkable. IMPRESSION: Negative single-view chest
[2017-09-18] MEDS ORDERED: LASIX IV ONE (19:44)
[2017-09-18] MEDS ORDERED: NORCO 10/325 PO ONE (19:56)
[2017-09-18] MEDS ORDERED: ZITHROMAX PO ONE (20:23)
[2017-09-18 21:13] VITALS: BP 146/77
== END 2017-09-18 21:30 | disposition home or self-care (01) ==
LOC: ED 12:04
DX: J44.1 Chronic obstructive pulmonary disease with (acute) exacerbation (principal); R60.9 Edema, unspecified; I10 Essential (primary) hypertension; Z90.711 Acquired absence of uterus with remaining cervical stump; Z88.0 Allergy status to penicillin
CPT/HCPCS: 36415; 71045; 80048; 83880; 84484; 85025; 93005; 93010; 94640; 96374; 99284; J1940